=== PATIENT | female | born 1980 | race Caucasian/White ===

== ENCOUNTER 2018-01-12 18:01 | Emergency (ER) | payer BC ==
[2018-01-12] MEDS ORDERED: Phenergan 25 MG INJ IV ONE (18:38)
[2018-01-12] MEDS ORDERED: Sodium Chloride 0.9% 1000 ML 1,000 ML IV STA (18:38)
[2018-01-12] MEDS ORDERED: TORAdol 30 mg Injection IV ONE (18:38)
--- NOTE | 2018-01-12 18:38 | ERPHSYRPT ---
- History of Present Illness Time Seen by Provider: 01/12/18 18:33 Source: patient, family Exam Limitations: no limitations Patient Subjective Stated Complaint: states has had throat and chest congestion since yesterday. also developed migraine. also vomited today. Triage Nursing Assessment: ambulated to room per self. skin w/d, color normal, resp easy. occasional dry cough noted. states lights hurt eyes Physician History: The patient is a 37-year-old female with her complaining of a headache that began when she woke up this morning. She has a history of migraine headaches and Relpax generally works but did not today. The headache is at the back of her head and behind her right eye. She is nauseated and has vomited. Yesterday she developed some nasal drainage and hoarseness. She denies fever or chills. She is requesting IV fluids and Phenergan for the headache. Her past medical history is significant for migraine headaches. Timing/Duration: today, gradual onset, worse Quality: sharpness Head Pain Location: occipital, parietal Severity of Pain-Max: severe Severity of Pain-Current: severe Recent Head Trauma: frequent headaches Modifying Factors: Improves With: exposure to light, medication (relpax did not work). Worsens With: noise Associated Symptoms: nausea/vomiting, nasal congestion, sensitive to light Previous symptoms: same symptoms as today, recently treated Allergies/Adverse Reactions: No Known Drug Allergies Allergy (Verified 01/12/18 18:19) Home Medications: Norgestimate-Ethinyl Estradiol [Ortho Tri-Cyclen Lo Tablet] 1 tab PO DAILY 02/03 [History] Topiramate 25 mg PO DAILY 01/12/18 [History] Hx Tetanus, Diphtheria Vaccination/Date Given: No Hx Influenza Vaccination/Date Given: Yes Hx Pneumococcal Vaccination/Date Given: No - Review of Systems Constitutional: No Fever, No Chills Eyes: No Symptoms Ears, Nose, & Throat: Nose Discharge Respiratory: Cough (mild) Cardiac: No Chest Pain, No Edema, No Syncope Abdominal/Gastrointestinal: No Abdominal Pain, No Nausea, No Vomiting, No Diarrhea Genitourinary Symptoms: No Dysuria Musculoskeletal: No Back Pain, No Neck Pain Skin: No Rash Neurological: Headache, No Focal Weakness, No Paralysis, No Sensory Changes Psychological: No Symptoms Endocrine: No Symptoms Hematologic/Lymphatic: No Symptoms Immunological/Allergic: No Symptoms All Other Systems: Reviewed and Negative - Past Medical History Pertinent Past Medical History: Yes Neurological History: Migraines ENT History: No Pertinent History Cardiac History: No Pertinent History Respiratory History: No Pertinent History Endocrine Medical History: No Pertinent History Musculoskeletal History: No Pertinent History GI Medical History: No Pertinent History History: Other Psycho-Social History: No Pertinent History Female Reproductive Disorders: No Pertinent History Other Medical History: cystitis hx with cystoscopy with stretching - Past Surgical History Past Surgical History: Yes Neuro Surgical History: No Pertinent History Cardiac: No Pertinent History Respiratory: No Pertinent History Gastrointestinal: No Pertinent History Genitourinary: Other Musculoskeletal: No Pertinent History Female Surgical History: No Pertinent History Other Surgical History: cystoscopy with stretching done - Social History Smoking Status: Never smoker Exposure to second hand smoke: No Drug Use: none Patient Lives Alone: No - Female History Hx Last Menstrual Period: now Hx Now: No - Nursing Vital Signs Nursing Vital Signs: Initial Vital Signs Temperature 97.7 F 01/12/18 18:07 Pulse Rate 85 01/12/18 18:07 Respiratory Rate 16 01/12/18 18:07 Blood Pressure 125/83 01/12/18 18:07 O2 Sat by Pulse Oximetry 100 01/12/18 18:07 Pain Scale Pain Intensity 6 - Physical Exam General Appearance: moderate distress, thin Eye Exam: PERRL/EOMI, photophobia Ears, Nose, Throat Exam: normal ENT inspection, moist mucous membranes Neck Exam: normal inspection, supple, full range of motion, No meningismus Respiratory Exam: normal breath sounds, lungs clear Cardiovascular Exam: regular rate/rhythm, normal heart sounds Gastrointestinal/Abdominal Exam: soft, No tenderness, No distention Back Exam: normal inspection, normal range of motion Extremity Exam: normal inspection Mental Status Exam: alert, oriented x 3, cooperative hr recruiter Exam: normal speech, PERRL, No facial droop Coordination/Gait Exam: normal cerebellar function Motor/Sensory Exam: no motor deficit, no sensory deficit Skin Exam: normal color, warm, dry, No rash SpO2 Interpretation: normal SpO2: 100 Oxygen Delivery: Room Air Ordered Tests: Active Orders 24 hr Category Date Time Status IV Insertion STAT Care 01/12/18 18:38 Active Medication Summary Generic Name Dose Route Start Last Admin Trade Name Freq PRN Reason Stop Dose Admin Sodium Chloride 1,000 mls @ 999 mls/hr 01/12/18 18:38 01/12/18 18:46 Sodium Chloride 0.9% 1000 Ml IV 01/12/18 19:38 999 mls/hr .Q1H1M STA Administration Discontinued Medications Generic Name Dose Route Start Last Admin Trade Name Ricardo PRN Reason Stop Dose Admin Sodium Chloride Confirm 01/12/18 18:43 Sodium Chloride 0.9% 1000 Ml Administered 01/12/18 18:44 Dose 1,000 mls @ ud .ROUTE .STK-MED ONE Ketorolac Tromethamine 30 mg 01/12/18 18:38 01/12/18 18:47 Toradol 30 Mg Injection IV 01/12/18 18:39 30 mg STAT ONE Administration Ketorolac Tromethamine Confirm 01/12/18 18:43 Toradol 30 Mg Injection Administered 01/12/18 18:44 Dose 30 mg .ROUTE .STK-MED ONE Promethazine HCl 25 mg 01/12/18 18:38 01/12/18 18:46 Phenergan 25 Mg Inj IV 01/12/18 18:39 25 mg STAT ONE Administration Promethazine HCl Confirm 01/12/18 18:43 Phenergan 25 Mg Inj Administered 01/12/18 18:44 Dose 25 mg .ROUTE .STK-MED ONE - Progress Progress: improved Progress Note: 01/12/18 19:02 toradol 30 mg, phenergan 25 mg, and fluids IV. Improved. Counseled pt/family regarding: diagnosis - Departure Time of Disposition: 19:03 Departure Disposition: Home Clinical Impression: Migraine headache, Rhinorrhea Condition: Stable Critical Care Time: No Referrals: LUIS ENRIQUE POLLARD [Primary Care Provider] - Additional Instructions: You have a migraine headache with vomiting. You were given Toradol 30 mg, Phenergan 25 mg, and fluids by IV in the ER. You also have rhinorrhea (runny nose). If you develop congestion, use Afrin [id number] nasal spray as directed. Follow-up with your primary medical doctor as needed.
[2018-01-12] MEDS ORDERED: Phenergan 25 MG INJ ONE (18:43)
[2018-01-12] MEDS ORDERED: TORAdol 30 mg Injection ONE (18:43)
[2018-01-12] MEDS ORDERED: Sodium Chloride 0.9% 1000 ML 1,000 ML ONE (18:43)
[2018-01-12 19:23] VITALS: BP 116/80; PULSE 68; O2SAT 98
== END 2018-01-12 19:28 | disposition home or self-care (01) ==
LOC: ED 18:01
DX: G43.909 Migraine, unspecified, not intractable, without status migrainosus (principal); J34.89 Other specified disorders of nose and nasal sinuses; R11.2 Nausea with vomiting, unspecified; Z79.899 Other long term (current) drug therapy
CPT/HCPCS: 36000; 96360; 96374; 96375; 99284; J1885; J2550

== ENCOUNTER 2019-04-11 15:45 | Emergency (ER) | payer BC ==
[2019-04-11] MEDS ORDERED: BABY ASPIRIN 81 MG CHEW ONE (16:12)
[2019-04-11] MEDS ORDERED: BABY ASPIRIN 81 MG CHEW PO ONE (16:13)
--- NOTE | 2019-04-11 16:13 | ERPHSYRPT ---
- History of Present Illness Time Seen by Provider: 04/11/19 16:00 Exam Limitations: no limitations Patient Subjective Stated Complaint: pt here for chest pain for couple days, worse with excertion and sob with excertion, no fever, cough, chills, pain to left side of chest, Triage Nursing Assessment: pt alert, walked in, resp easy, chest clear, abd soft , pt shaky, no edema, moves all ext well Physician History: This is a 38-year-old female with no prior cardiac history who presents with left anterior chest pain with radiation to her left upper extremity. Is described as tightness and pressure. Patient has never had a situation like this in the past. Patient's symptoms are intermittent and began 2 days ago. Patient denies new medications. Patient denies a change in her level of stress or anxiety. Patient's primary care physician is Dr. Houston. Patient has no shortness of breath. Patient denies abdominal pain, nausea, vomiting, diarrhea. Patient does take magnesium for occasional leg cramps. Timing/Duration: day(s) (2) Activities at Onset: none Quality: aching, pressure, tightness Location: other (left anterior chest) Chest Pain Radiation: arm (Left) Severity of Pain-Max: mild Severity of Pain-Current: mild Modifying Factors: Improves With: nothing Associated Symptoms: denies symptoms Prior Chest Pain/Cardiac Workup: no prior chest pain Nitro Today/Relief: no nitro taken today Aspirin Treatment Today: no aspirin today Allergies/Adverse Reactions: No Known Drug Allergies Allergy (Verified 04/11/19 15:57) Home Medications: norgestimate-ethinyl estradioL [Ortho Tri-Cyclen Lo Tablet] 1 tab PO DAILY 02/03 [History] Topiramate 25 mg PO DAILY 01/12/18 [History] Hx Tetanus, Diphtheria Vaccination/Date Given: No Hx Influenza Vaccination/Date Given: Yes Hx Pneumococcal Vaccination/Date Given: No Immunizations Up to Date: Yes - Review of Systems Constitutional: No Symptoms Eyes: No Symptoms Ears, Nose, & Throat: No Symptoms Respiratory: No Symptoms Cardiac: No Symptoms Abdominal/Gastrointestinal: No Symptoms Genitourinary Symptoms: No Symptoms Musculoskeletal: No Symptoms Skin: No Symptoms Neurological: No Symptoms Psychological: No Symptoms Endocrine: No Symptoms Hematologic/Lymphatic: No Symptoms Immunological/Allergic: No Symptoms All Other Systems: Reviewed and Negative - Past Medical History Pertinent Past Medical History: Yes Neurological History: Migraines ENT History: No Pertinent History Cardiac History: No Pertinent History Respiratory History: No Pertinent History Endocrine Medical History: No Pertinent History Musculoskeletal History: No Pertinent History GI Medical History: No Pertinent History History: Other Psycho-Social History: No Pertinent History Female Reproductive Disorders: No Pertinent History Other Medical History: cystitis hx with cystoscopy with stretching - Past Surgical History Past Surgical History: Yes Neuro Surgical History: No Pertinent History Cardiac: No Pertinent History Respiratory: No Pertinent History Gastrointestinal: No Pertinent History Genitourinary: Other Musculoskeletal: No Pertinent History Female Surgical History: Lumpectomy Other Surgical History: cystoscopy with stretching done - Social History Smoking Status: Never smoker Exposure to second hand smoke: No Drug Use: none Patient Lives Alone: No - Female History Hx Last Menstrual Period: 03/2019 Hx Now: No - Nursing Vital Signs Nursing Vital Signs: Initial Vital Signs Pulse Rate 90 04/11/19 15:48 Respiratory Rate 20 04/11/19 15:48 O2 Sat by Pulse Oximetry 100 04/11/19 15:48 Pain Scale Pain Intensity 0 - Physical Exam General Appearance: no apparent distress, alert, anxiety Eye Exam: PERRL/EOMI, eyes nml inspection Ears, Nose, Throat Exam: normal ENT inspection, moist mucous membranes Neck Exam: normal inspection, non-tender, supple, full range of motion Respiratory Exam: normal breath sounds, chest tenderness, lungs clear, airway intact, No respiratory distress Cardiovascular Exam: regular rate/rhythm, normal heart sounds, normal peripheral pulses Gastrointestinal/Abdomen Exam: soft, normal bowel sounds, No tenderness Pelvic Exam: not done Rectal Exam: not done Back Exam: normal inspection, normal range of motion, No CVA tenderness, No vertebral tenderness Extremity Exam: normal inspection, normal range of motion, pelvis stable Neurologic Exam: alert, oriented x 3, cooperative, storeroom keeper II-XII nml as tested, nml cerebellar function, nml station & gait Skin Exam: normal color, warm, dry Lymphatic Exam: No adenopathy SpO2 Interpretation: normal SpO2: 100 O2 Delivery: Room Air - Course Nursing assessment & vital signs reviewed: Yes EKG Interpreted by Me: RATE (88), Sinus Rhythm, NORMAL AXIS, NORMAL INTERVALS, NORMAL QRS, Non-specific ST Changes Ordered Tests: Active Orders 24 hr Category Date Time Status Medical Technical Writer STAT Care 04/11/19 16:00 Active EKG-ER Only STAT Care 04/11/19 16:00 Active IV Insertion STAT Care 04/11/19 16:00 Active CHEST 1 VIEW (PORTABLE) Stat Exams 04/11/19 16:14 Taken CHEST WITH CONTRAST [CT] Stat Exams 04/11/19 17:25 Taken CBC W DIFF Stat Lab 04/11/19 16:15 Completed CMP Stat Lab 04/11/19 16:15 Completed D-DIMER QUANTITATIVE Stat Lab 04/11/19 16:15 Completed MAG [MAGNESIUM] Stat Lab 04/11/19 16:15 Completed NT PRO BNP Stat Lab 04/11/19 16:15 Completed PROTIME WITH INR Stat Lab 04/11/19 16:15 Completed TROPONIN Q3H Lab 04/11/19 16:00 Completed TROPONIN Q3H Lab 04/12/19 01:15 Ordered TROPONIN Q3H Lab 04/12/19 04:15 Ordered Medication Summary Discontinued Medications Generic Name Dose Route Start Last Admin Trade Name Freq PRN Reason Stop Dose Admin Aspirin Confirm 04/11/19 16:12 Baby Aspirin 81 Mg Chew Administered 04/11/19 16:13 Dose 324 mg .ROUTE .STK-MED ONE Aspirin 324 mg 04/11/19 16:13 04/11/19 16:16 Baby Aspirin 81 Mg Chew PO 04/11/19 16:14 324 mg STAT ONE Administration Sodium Chloride 500 mls @ 500 mls/hr 04/11/19 17:24 04/11/19 18:22 Sodium Chloride 0.9% 500 Ml IV 04/11/19 18:23 Infused .Q1H ONE Infusion Sodium Chloride Confirm 04/11/19 17:51 Sodium Chloride 0.9% 500 Ml Administered 04/11/19 17:52 Dose 500 mls @ ud IV .STK-MED ONE Lab/Rad Data: Laboratory Result Diagrams 04/11/19 16:15 04/11/19 16:15 Laboratory Results 04/11/19 04/11/19 04/11/19 Range/Units 16:15 16:15 16:15 WBC (4.0-10.5) K/mm3 RBC (4.1-5.4) M/mm3 Hgb (12.0-16.0) gm/dl Hct (35-47) % MCV (78-100) fl MCH (26-32) pg MCHC (32-36) g/dl RDW (11.5-14.0) % Plt Count (150-450) K/mm3 MPV (7.5-11.0) fl Gran % (36.0-66.0) % Eos # (Auto) (0-0.5) Absolute Lymphs (auto) (1.0-4.6) Absolute Monos (auto) (0.0-1.3) Lymphocytes % (24.0-44.0) % Monocytes % (0.0-12.0) % Eosinophils % (0.00-5.0) % Basophils % (0.0-0.4) % Absolute Granulocytes (1.4-6.9) Basophils # (0-0.4) PT 12.2 (9.95-12.35) SECONDS INR 1.08 (0.8-3.0) D-Dimer 626 H* (215-500) ng/mL Sodium 139 (137-145) mmol/L Potassium 3.9 (3.5-5.1) mmol/L Chloride 110 H (98-107) mmol/L Carbon Dioxide 21 L (22-30) mmol/L Anion Gap 12.6 (5-15) MEQ/L BUN 11 (7-17) mg/dL Creatinine 0.87 (0.52-1.04) mg/dL Estimated GFR > 60.0 ML/MIN Glucose 96 (74-106) mg/dL Calcium 9.5 (8.4-10.2) mg/dL Magnesium 2.0 (1.6-2.3) mg/dL Total Bilirubin 0.50 (0.2-1.3) mg/dL AST 26 (14-36) U/L ALT 16 (0-35) U/L Alkaline Phosphatase 53 (38-126) U/L Troponin I (0.000-0.034) ng/mL NT-Pro-B Natriuret Pep 47.1 (0-450) pg/mL Serum Total Protein 7.8 (6.3-8.2) g/dL Albumin 4.4 (3.5-5.0) g/dL 04/11/19 04/11/19 Range/Units 16:15 16:00 WBC 6.1 (4.0-10.5) K/mm3 RBC 4.25 (4.1-5.4) M/mm3 Hgb 12.9 (12.0-16.0) gm/dl Hct 39.1 (35-47) % MCV 92.0 (78-100) fl MCH 30.4 (26-32) pg MCHC 33.0 (32-36) g/dl RDW 12.3 (11.5-14.0) % Plt Count 233 (150-450) K/mm3 MPV 10.5 (7.5-11.0) fl Gran % 45.6 (36.0-66.0) % Eos # (Auto) 0.07 (0-0.5) Absolute Lymphs (auto) 2.54 (1.0-4.6) Absolute Monos (auto) 0.66 (0.0-1.3) Lymphocytes % 41.8 (24.0-44.0) % Monocytes % 10.9 (0.0-12.0) % Eosinophils % 1.2 (0.00-5.0) % Basophils % 0.5 (0.0-0.4) % Absolute Granulocytes 2.78 (1.4-6.9) Basophils # 0.03 (0-0.4) PT (9.95-12.35) SECONDS INR (0.8-3.0) D-Dimer (215-500) ng/mL Sodium (137-145) mmol/L Potassium (3.5-5.1) mmol/L Chloride (98-107) mmol/L Carbon Dioxide (22-30) mmol/L Anion Gap (5-15) MEQ/L BUN (7-17) mg/dL Creatinine (0.52-1.04) mg/dL Estimated GFR ML/MIN Glucose (74-106) mg/dL Calcium (8.4-10.2) mg/dL Magnesium (1.6-2.3) mg/dL Total Bilirubin (0.2-1.3) mg/dL AST (14-36) U/L ALT (0-35) U/L Alkaline Phosphatase (38-126) U/L Troponin I < 0.012 (0.000-0.034) ng/mL NT-Pro-B Natriuret Pep (0-450) pg/mL Serum Total Protein (6.3-8.2) g/dL Albumin (3.5-5.0) g/dL - Progress Progress: improved, re-examined Air Movement: good Progress Note: 04/11/19 17:22 Chest x-ray reveals no acute process 04/11/19 19:50 cta chest-no pulm emboli; no acute process Blood Culture(s) Obtained: No Antibiotics given: No Counseled pt/family regarding: lab results, diagnosis, need for follow-up, rad results - Departure Departure Disposition: Home Clinical Impression: Non-cardiac chest pain Condition: Stable Critical Care Time: No Referrals: LUIS ENRIQUE HOUSTON [Primary Care Provider] - Additional Instructions: Follow-up with your primary care physician for further management. Return to the emergency department if symptoms recur/worsen.
[2019-04-11 17:03] LABS: Absolute Neutrophil Ct (ANC) 2.78 (1.4-6.9); BASOPHIL % 0.5 % (0.0-0.4); Basophil (Absolute #) 0.03 (0-0.4); Eosinophil % 1.2 % (0.00-5.0); Eosinophil (Absolute #) 0.07 (0-0.5); Hematocrit 39.1 % (35-47); Hemoglobin 12.9 gm/dl (12.0-16.0); Lymphocyte (Absolute #) 2.54 (1.0-4.6); Lymphocytes % 41.8 % (24.0-44.0); Mean Corpuscular Hemoglobin 30.4 pg (26-32); Mean Platelet Volume 10.5 fl (7.5-11.0); Monocyte (Absolute #) 0.66 (0.0-1.3); Monocytes % 10.9 % (0.0-12.0); Neutrophil % 45.6 % (36.0-66.0); Platelet Count 233 K/mm3 (150-450); Red Blood Count 4.25 M/mm3 (4.1-5.4); Red Cell Distribution Width 12.3 % (11.5-14.0); White Blood Count 6.1 K/mm3 (4.0-10.5)
[2019-04-11 17:09] LABS: ALBUMIN 4.4 g/dL (3.5-5.0); ALKALINE PHOSPHATASE 53 U/L (38-126); ANION GAP 12.6 MEQ/L (5-15); BLOOD UREA NITROGEN 11 mg/dL (7-17); CHLORIDE 110 mmol/L (98-107); Calcium 9.5 mg/dL (8.4-10.2); Carbon Dioxide 21 mmol/L (22-30); Creatinine 1 0.87 mg/dL (0.52-1.04); Glucose 96 mg/dL (74-106); NT PRO BNP 47.1 pg/mL (0-450); Potassium 3.9 mmol/L (3.5-5.1); SGOT/AST 26 U/L (14-36); SGPT/ALT 16 U/L (0-35); SODIUM 139 mmol/L (137-145); Total Protein 7.8 g/dL (6.3-8.2)
[2019-04-11 17:15] LABS: INR 1.08 (0.8-3.0); PROTIME 12.2 SECONDS (9.95-12.35)
[2019-04-11] MEDS ORDERED: Sodium Chloride 0.9% 500 ML 500 ML IV ONE ×2 (17:24→17:51)
[2019-04-11 19:55] VITALS: BP 110/70; PULSE 81; O2SAT 99
--- NOTE | 2019-04-11 21:43 | XRAY ---
Indication: Left chest pain 2 days. Comparison: January 18, 2017. Portable chest again demonstrates normal heart, lungs, and bony thorax.
--- NOTE | 2019-04-11 21:48 | XRAY ---
Indication: Chest pain and dyspnea on exertion. Elevated d-dimer. Multiple contiguous axial images obtained through the chest using 80 cc Isovue 370 contrast and PE protocol. Comparison: None There is good opacification of the pulmonary arteries. No filling defect or pulmonary embolus. Heart is not enlarged. Aorta is normal in course and caliber. No pathologic mediastinal/hilar lymphadenopathy. Lungs are inflated and clear. Bony thorax intact. Limited upper abdomen unremarkable. Impression: Negative pulmonary embolus. No acute cardiopulmonary abnormalities. Comment: Preliminary interpretation was made by [facility]. No critical discrepancy.
== END 2019-04-11 20:03 | disposition home or self-care (01) ==
LOC: ED 15:45
DX: R07.89 Other chest pain (principal); Z79.899 Other long term (current) drug therapy
CPT/HCPCS: 36000; 36415; 71045; 71260; 80053; 83735; 83880; 84484; 85025; 85379; 85610; 93005; 93041; 96360; 99284; A9270-GY

== ENCOUNTER 2019-07-11 06:00 | Day surgery (SDC) | payer BC ==
[2019-07-11] MEDS ORDERED: Lactated Ringers 1,000 ML IV ONE ×2 (06:19→07:30)
[2019-07-11] MEDS: Lactated Ringers 1,000 ML IV SCH ×2 (06:20→07:32)
[2019-07-11 06:24] VITALS: O2SAT 100
[2019-07-11] MEDS ORDERED: DIPRIVAN 200 MG/20 ML IV ONE ×2 (08:01→08:15)
[2019-07-11 09:36] VITALS: BP 111/73; PULSE 93
--- NOTE | 2019-07-11 10:13 | OP ---
SURGERY DATE/TIME: 07/11/2019 0805 PREOPERATIVE DIAGNOSIS: Chronic abdominal pain. POSTOPERATIVE DIAGNOSIS: Normal colon. PROCEDURE: Colonoscopy. SURGEON: Dr. Houston. ANESTHESIA: MAC. Medications given by anesthesia department. HISTORY: The patient is a 38 year-old white female who has been having problems with abdominal pain. She has had some ovarian cysts but had persistent abdominal pain over the past three years. The patient was felt the need to have endoscopic evaluation. She was appraised of the risks of the procedure including the risk of perforation, phlebitis, untoward reaction to medication, bleeding and missed lesions. The patient verbalized her understanding and desired to have the procedure performed. DESCRIPTION OF PROCEDURE: The patient was given the medications by the anesthesia department. She had continuous pulse oximetry, ECG monitoring, intermittent blood pressure monitoring and tidal CO2 monitoring during the examination. She was placed in the left lateral decubitus position. A digital rectal examination was performed and revealed normal anal sphincter tone and no masses. The flexible Olympus pediatric colonoscope was used to intubate the rectum. A view of the colon was developed sequentially to the cecum. Upon insertion and withdrawal, including a retroflex view in the rectum, no mucosal lesions were encountered. The scope was removed from the patient who tolerated the procedure well and was sent back to OP recovery in good condition.
== END 2019-07-11 09:28 | disposition home or self-care (01) ==
LOC: SDC 06:00
PROVIDERS: ATTEND Family Medicine
DX: R10.32 Left lower quadrant pain (principal)
CPT/HCPCS: 84703; J2704

== ENCOUNTER 2024-02-01 00:15 | Emergency (ER) | payer BC ==
[2024-02-01] MEDS ORDERED: TORAdol 30 mg Injection ONE (01:10)
[2024-02-01] MEDS ORDERED: Zofran 4 MG/2 ML VIAL ONE (01:10)
[2024-02-01] MEDS ORDERED: ROCEPHIN 2 GM/100 ML NACL 2 GM/100 ML IVPB IV ONE (03:27)
[2024-02-01 04:40] LABS: ALBUMIN 4.6 g/dL (3.5-5.0); ANION GAP 13.9 MEQ/L (5-15); Absolute Neutrophil Ct (ANC) 8.45 x10^3/uL (1.56-6.13); BASOPHIL % 0.3 % (0.1-1.2); BILIRUBIN,TOTAL 0.4 mg/dL (0.2-1.3); Basophil (Absolute #) 0.03 x10^3/uL (0.01-0.08); Creatinine 1 1.03 mg/dL (0.52-1.04); EST GLOMERULAR FILTRATION RATE 69.2 ML/MIN; Eosinophil % 0.6 % (0.7-5.8); Eosinophil (Absolute #) 0.07 x10^3/uL (0.04-0.36); Hematocrit 38.5 % (34.1-44.9); Hemoglobin 12.9 g/dL (11.2-15.7); IMMATURE GRAN # 0.03 x10^3u/L (0.001-0.031); IMMATURE GRAN % 0.3 % (0.001-0.429); Lymphocyte (Absolute #) 1.77 x10^3/uL (1.18-3.74); Lymphocytes % 15.9 % (19.3-51.7); Mean Cell Volume 92.3 fL (79.4-94.8); Mean Corpuscular Hemoglobin 30.9 pg (25.6-32.2); Mean Corpuscular Hgb Concent. 33.5 g/dL (32.2-35.5); Mean Platelet Volume 9.9 fL (9.4-12.3); Monocytes % 7.2 % (4.7-12.5); Neutrophil % 75.7 % (34.0-71.1); Platelet Count 275 x10^3/uL (182-369); Potassium 3.3 mmol/L (3.5-5.1); Red Blood Count 4.17 x10^6/uL (3.93-5.22); Red Cell Distribution Width 12.3 % (11.7-14.4); Total Protein 7.7 g/dL (6.3-8.2); White Blood Count 11.2 x10^3/uL (3.98-10.04)
[2024-02-01 04:44] LABS: Appearance Turbid (Clear); Bilirubin Small (Negative); Ketones Negative (Negative); Leukocyte Esterase Trace (Negative); Nitrite Positive (Negative); Protein,Urine Dip Negative (Negative)
[2024-02-01 04:45] LABS: Bacteria None Seen /HPF (None Seen); Blood Negative (Negative); Epithelial Cells Moderate /HPF (None Seen); Glucose, Urine Negative (Negative); RBC 0-2 /HPF (0-5); WBC 0-2 /HPF (0-5)
--- NOTE | 2024-02-01 05:13 | XRAY ---
CLINICAL HISTORY: LT SIDE ABD PAIN COMPARISON: None. TECHNIQUE: Contiguous axial images were obtained from the level of the diaphragm to the pubic symphysis without intravenous or oral contrast. Coronal and sagittal reconstructions were likewise performed and indicated to increase the sensitivity for detecting clinically relevant pathology. CT scan was performed according to ALARA (as low as reasonable achievable). FINDINGS: The visualized lung bases are clear. Evaluation of the abdominal and pelvic visceral organs is limited without intravenous contrast. The unenhanced liver, spleen, pancreas, and adrenal glands are grossly unremarkable. The gallbladder is present. The kidneys are normal in size and attenuation without obvious calcification. There is no hydronephrosis or perinephric stranding. Mild fullness noted in left kidney and left upper and midureter. No adenopathy or fluid collections are seen. No evidence of focal or diffuse bowel wall thickening or evidence of bowel obstruction is seen. The appendix is visualized in the right lower quadrant and appears within normal limits. The aorta is normal in caliber. The urinary bladder is normal in contour. Pelvic viscera are grossly unremarkable. No aggressive appearing osseous lesions are identified. Well defined cystic lesion of size 26 x 26 mm is arising from right ovary. IMPRESSION: 1. Well defined cystic lesion is arising from right ovary- would be simple cyst (USG correlation suggested) 2. Mild fullness noted in left kidney and left upper and mid ureter. No obvious radio-opaque ureteric calculus is seen. Advised ultrasound and CT urography evaluation to rule out any obstructive pathology. Electronically Signed by: Trevor Santos MD. (02/01/2024 02:28:06 EST)
== END 2024-02-01 04:00 | disposition home or self-care (01) ==
LOC: ED 00:15
DX: N10 Acute pyelonephritis (principal); N83.201 Unspecified ovarian cyst, right side
CPT/HCPCS: 36415; 74176; 80053; 81001; 83690; 85025; 87086; 96374; 96375; 99283; 99284; J0696; J1885; J2405